=== PATIENT | male | born 1975 | race Caucasian/White ===

== ENCOUNTER 2021-01-10 17:36 | Inpatient (IN) | payer BC ==
[~2021-01-10] VITALS: Ht 175.3 cm; Wt 112.3 kg
--- NOTE | 2021-01-10 17:58 | PHYS DOC ---
General Adult EDM: Chief Complaint: SHORTNESS OF BREATH HPI: HPI: Patient is a 45 year old male presents emergency department complaining of increased shortness of breath with exertion that started yesterday afternoon. Patient states he was diagnosed Covid19+ on January 02, 2021, and has been self isolating at home since. Patient states that his also has the Covid virus and she purchased a pulse oximeter so they could monitor there oxygen saturations at home. Patient states his oxygen saturation was 83% today so he called the ambulance to bring him to the emergency department. Patient reports intermittent chest pains with intermittent periods of shortness of breath. Miguel maryam denies any chest pain or shortness of breath at this time. Patient reports she has a cough that is nonproductive. Patient reports he was seen at an [facility] urgent care center who started him on a metered-dose inhaler of albuterol, oral steroids, and Augmentin twice daily. Patient states he is a type II diabetic and takes Metformin 1000 mg twice daily, glimepiride 2 mg nightly. Patient states he had his tonsils removed as a child and has had no other surgeries. Review of Systems: Review of Systems: 14 body systems of review of systems have been reviewed. See HPI for pertinent positives and negative responses, otherwise all other systems are negative, nonpertinent or noncontributory. Heart Score: HEART Score for Chest Pain: HEART Score for Chest Pain Response (Comments) Value History Slighlty/Non-Suspicious 0 ECG Normal 0 Age >45 - < 65 1 Risk Factors No Risk Factors 0 Troponin < Normal Limit 0 Total 1 Risk Factors: Risk Factors: DM, Current or recent (<one month) smoker, HTN, HLP, family history of CAD, obesity. Risk Scores: Score 0 - 3: 2.5% MACE over next 6 weeks - Discharge Home Score 4 - 6: 20.3% MACE over next 6 weeks - Admit for Clinical Observation Score 7 - 10: 72.7% MACE over next 6 weeks - Early Invasive Strategies Current Medications: Metformin 1000 mg twice daily, glimepiride 2 mg nightly, atorvastatin 40 mg daily, rosuvastatin 10 mg daily, amlodipine 5 mg daily, lisinopril 40 mg daily, hydrochlorothiazide 25 mg daily. Allergies: Allergies: Allergies Coded Allergies Type Severity Reaction Last Updated Verified codeine Allergy Mild nausea 01/10/21 Yes Physical Exam: PE: Constitutional: Well developed, well nourished, no acute distress, non-toxic appearance. Patient is in mild respiratory distress during physical exam. HENT: Normocephalic, atraumatic, bilateral external ears normal, oropharynx moist, no oral exudates, nose normal. Eyes: PERRLA, EOMI, conjunctiva normal, no discharge. Neck: Normal range of motion, no tenderness, supple, no stridor. Cardiovascular:Heart rate regular rhythm, no murmur, heart sounds S1-S2 auscultation. Lungs & Thorax: Bilateral breath sounds diminished bilateral bases otherwise clear to auscultation all lung quispe, no other adventitious lung sounds appreciated. Abdomen: Bowel sounds normal, soft, no tenderness, no masses, no pulsatile masses. Skin: Warm, dry, no erythema, no rash. Back: No tenderness, no CVA tenderness. Extremities: No tenderness, no cyanosis, no clubbing, ROM intact, no edema. Neurologic: Alert and oriented X 3, normal motor function, normal sensory function, no focal deficits noted. Psychologic: Affect normal, judgement normal, mood normal. Current Patient Data: Labs: Laboratory Tests Test 01/10/21 18:00 01/10/21 19:34 White Blood Count 9.3 x10^3/uL Red Blood Count 4.49 x10^6/uL Hemoglobin 13.4 g/dL Hematocrit 38.7 % Mean Corpuscular Volume 86 fL Mean Corpuscular Hemoglobin 30 pg Mean Corpuscular Hemoglobin Concent 35 g/dL Red Cell Distribution Width 13.2 % Platelet Count 299 x10^3/uL Neutrophils (%) (Auto) 86 % Lymphocytes (%) (Auto) 7 % Monocytes (%) (Auto) 7 % Eosinophils (%) (Auto) 0 % Basophils (%) (Auto) 0 % Neutrophils # (Auto) 8.0 x10^3/uL Lymphocytes # (Auto) 0.7 x10^3/uL Monocytes # (Auto) 0.6 x10^3/uL Eosinophils # (Auto) 0.0 x10^3/uL Basophils # (Auto) 0.0 x10^3/uL Segmented Neutrophils % 81 % Lymphocytes % 9 % Atypical Lymphocytes % (Manual) 2 % Monocytes % 8 % Platelet Estimate Adequate Large Platelets Occ D-Dimer (Donna) 0.28 ug/mlFEU Sodium Level 135 mmol/L Potassium Level 4.2 mmol/L Chloride Level 97 mmol/L Carbon Dioxide Level 25 mmol/L Anion Gap 13 Blood Urea Nitrogen 22 mg/dL Creatinine 1.3 mg/dL Estimated GFR (Cockcroft-Gault) 59.7 BUN/Creatinine Ratio 17 Glucose Level 401 mg/dL Calcium Level 8.7 mg/dL Magnesium Level 2.6 mg/dL Total Bilirubin 0.7 mg/dL Aspartate Amino Transf (AST/SGOT) 22 U/L Alanine Aminotransferase (ALT/SGPT) 37 U/L Alkaline Phosphatase 42 U/L Troponin I Quantitative < 0.017 ng/mL Total Protein 7.0 g/dL Albumin 2.9 g/dL Albumin/Globulin Ratio 0.7 Acetone Level Neg O2 Saturation 89 % Arterial Blood pH 7.43 Arterial Blood pCO2 at Patient Temp 42 mmHg Arterial Blood pO2 at Patient Temp 56 mmHg Arterial Blood HCO3 27 mmol/L Arterial Blood Base Excess 3 mmol/L Oxyhemoglobin 88.6 % Methemoglobin 0.4 % Carbon Monoxide, Quantitative 0.2 % FiO2 28 EKG: EKG: EKG performed at 1749 by ED nursing staff, shows a normal sinus rhythm without ectopy heart rate 88 bpm ME interval 0.136, QTc interval 0.432, no acute STEMI, no ACS, no acute ischemia appreciated, EKG interpreted by ED attending physician Dr. Lorenzana Radiology/Procedures: Radiology/Procedures: PATIENT: MEHDI CONLEY ACCOUNT: [id number] : 1975 LOCATION: ER AGE: 45 SEX: M EXAM STATUS: REG ER ORD. PHYSICIAN: FLAVIA DE LA ROSA APRN REASON: SHORT OF BREATH, COVID-19+ room 19 PROCEDURE: CHEST AP ONLY XR CHEST 1V History: Reason: SHORT OF BREATH, COVID-19+ room 19 / Spl. Instructions: / History: Comparison: None. Findings: Ill-defined bilateral pulmonary opacities. No pleural effusion. No pneumothorax. Normal heart size. Impression: 1. Ill-defined bilateral pulmonary opacities, can be seen with viral pneumonia. Electronically signed by: Ruiz Diana DO (01/10/2021 6:31 PM) [facility] DICTATED and SIGNED BY: RUIZ DIANA DO DATE: 01/10/21 [id number] 0 Course & Med Decision Making: Course & Med Decision Making Pertinent Labs and Imaging studies reviewed. (See chart for details) 45-year-old male, vital signs reviewed, presents with emergency department complaining of increased shortness of breath after being diagnosed with COVID-19 virus. Physical examination was concerning for hypoxia, ED work-up initiated for cardiopulmonary process. EKG normal, cardiac enzymes normal, chest x-ray consistent with bilateral viral pneumonia, patient's D-dimer was negative. Patient's blood gas concerning for hypoxia, patient placed on 4 L nasal cannula to maintain sat above 92%. Discussed findings with patient and recommended admission to the hospital, patient was amenable to this plan. Discussed patient case with [facility] physician Dr. Cheney who agreed to assume care and admit patient to the sixth floor for the diagnosis of hypoxia, COVID-19 positive, uncontrolled diabetes mellitus. Dr. Cheney has assumed patient care at this time. Patient is Covid19+, or N95 mask, goggles, face shield, PPE gown and gloves during all contact with patient. Patient has not had a COVID-19 vaccination, has had a flu shot in 2020. Dragon Disclaimer: Toppr Disclaimer: This electronic medical record was generated, in whole or in part, using a voice recognition dictation system. Departure Departure Impression: Primary Impression: Hypoxia Additional Impressions: COVID-19 virus infection Uncontrolled diabetes mellitus Qualified Codes: E11.65 - Type 2 diabetes mellitus with hyperglycemia Disposition: ADMITTED INPT THIS HOSP Admitting Physician: [facility] (Admit to Dr. Cheney, sixth floor COVID-19 unit) Condition: GUARDED Referrals: UNKNOWN PCP NAME (PCP) FLAVIA DE LA ROSA APRN Jan 10, 2021 17:58
[2021-01-10 18:21] LABS: BASO % 0 % (0-3); EOS % 0 % (0-3); HEMATOCRIT 38.7 % (39.0-53.0); HEMOGLOBIN 13.4 g/dL (13.0-17.5); LYMPH # 0.7 x10^3/uL (1.0-4.8); LYMPH % 7 % (24-48); MEAN CORPUSCULAR HEMOGLOBIN 30 pg (25-35); MEAN CORPUSCULAR HGB CONC 35 g/dL (31-37); MEAN CORPUSCULAR VOLUME 86 fL (79-100); MONO # 0.6 x10^3/uL (0.0-1.1); MONO % 7 % (0-9); NEUT % 86 % (31-73); PLATELET COUNT 299 x10^3/uL (140-400); RED BLOOD COUNT 4.49 x10^6/uL (4.30-5.70); RED CELL DISTRIBUTION WIDTH 13.2 % (11.5-14.5); WHITE BLOOD COUNT 9.3 x10^3/uL (4.0-11.0)
[2021-01-10 18:33] LABS: CALCIUM 8.7 mg/dL (8.5-10.1); CREATININE 1.3 mg/dL (0.7-1.3); GFR 59.7; POTASSIUM 4.2 mmol/L (3.5-5.1)
--- NOTE | 2021-01-10 18:33 | RAD ---
XR CHEST 1V History: Reason: SHORT OF BREATH, COVID-19+ room 19 / Spl. Instructions: / History: Comparison: None. Findings: Ill-defined bilateral pulmonary opacities. No pleural effusion. No pneumothorax. Normal heart size. Impression: 1. Ill-defined bilateral pulmonary opacities, can be seen with viral pneumonia. Electronically signed by: Ruiz Diana DO (01/10/2021 6:31 PM) [facility]
[2021-01-10 18:39] LABS: ALBUMIN 2.9 g/dL (3.4-5.0); ALBUMIN/GLOBULIN RATIO 0.7 (1.0-1.7); MAGNESIUM 2.6 mg/dL (1.8-2.4); TOTAL BILIRUBIN 0.7 mg/dL (0.2-1.0)
[2021-01-10 19:34] LABS: BASE EXCESS COOX 3 mmol/L (-3-3); HCO3 COOX 27 mmol/L (21-28); METHEMOGLOBIN 0.4 % (0.0-1.9); OXYHEMOGLOBIN 88.6 %; PCO2 COOX 42 mmHg (35-46); PO2 COOX 56 mmHg (75-108); SAT O2 COOX 89 % (92-99)
[2021-01-10 19:58] LABS: % ATYL 2 % (0-0); % LYMPHS 9 % (24-48); % MONOS 8 % (0-10); % SEGS 81 % (35-66)
[2021-01-10 19:59] LABS: PLT ESTIMATE ADEQUATE (ADEQUATE)
[2021-01-10] MEDS ORDERED: guaiFENesin/CODEINE 100mg/10mg 5 ML LIQUID PO PRN (21:00)
[2021-01-10] MEDS ORDERED: DEXTROSE 50% 25 GM / 50ML DISP.SYRIN. IV PRN (21:00)
[2021-01-10] MEDS ORDERED: AZITHROMYCIN 500 MG in IV NORMAL SALINE 250ML 250 ML IV ONE (21:00)
[2021-01-10] MEDS ORDERED: ERGOCALCIFEROL (VITAMIN D2) 50,000 UNIT CAPSULE. PO ONE (21:00)
--- NOTE | 2021-01-10 21:08 | PDOC1 ---
History and Physical Date of Admission Date of Admission DATE: 01/10/21 TIME: 21:02 History of Present Illness History of Present Illness Mr. Barber is a 45 year old male, admit with marked worse shortness of breath with exertion over 24 hours. Noted to be Covid19+ on January 02, 2021, he worked 2/, tested pos after exposure from his . They had used a home pulse oximeter and dropped to 83% today. He has intermittent chest pains with cough and dyspnea. Patient states he is a type II diabetic and takes Metformin 1000 mg twice daily, glimepiride 2 mg nightly. 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, Social History Smoke: No ALCOHOL: none Drugs: None Current Problem List Problem List Problems Medical Problems: (1) COVID-19 virus infection Status: Acute (2) Hypoxia Status: Acute (3) Uncontrolled diabetes mellitus Status: Acute Current Medications Current Medications Current Medications Ergocalciferol (Vitamin D2) 50,000 unit 1X ONCE PO ; Start 01/10/21 at 21:00; Stop 01/10/21 at 21:01 Zinc Sulfate (Orazinc) 220 mg DAILY PO ; Start 01/11/21 at 09:00 Vitamin D (Vitamin D3) 5,000 unit DAILY PO ; Start 01/11/21 at 09:00 Vitamin B Complex (Folbic Tablet) 1 tab DAILY PO ; Start 01/11/21 at 09:00 Enoxaparin Sodium (Lovenox Per Pharmacy Prophylaxis Dosing) 1 each PRN DAILY PRN MC SEE COMMENTS; Start 01/10/21 at 21:00 Guaifenesin/ Codeine Phosphate (Robitussin Ac) 5 ml PRN Q6HRS PRN PO COUGH; Start 01/10/21 at 21:00 Ascorbic Acid (Vitamin C) 500 mg DAILY PO ; Start 01/10/21 at 21:00 Benzonatate (Tessalon Perle) 100 mg BID PO ; Start 01/10/21 at 21:00; Status UNV Prednisone (Prednisone) 50 mg 1X ONCE PO ; Start 01/10/21 at 21:00; Stop 01/10/21 at 21:01; Status UNV Prednisone (Prednisone) 40 mg DAILY PO ; Start 01/11/21 at 09:00; Status UNV Insulin Glargine (Lantus Syringe) 30 unit QHS SQ ; Start 01/10/21 at 21:00; Status UNV Insulin Human Lispro (HumaLOG) 0-9 UNITS QIDACHS SQ ; Start 01/10/21 at 21:00; Status UNV Dextrose (Dextrose 50%-Water Syringe) 12.5 gm PRN Q15MIN PRN IV SEE COMMENTS; Start 01/10/21 at 21:00; Status UNV Allergies Allergies: Coded Allergies: codeine (Verified Allergy, Mild, nausea, 01/10/21) ROS General: YES: Chills, Fatigue, Malaise, Appetite PSYCHOLOGICAL ROS: YES: Irritablity, Sleep disturbances; No: Anxiety, Behavioral Disorder, Concentration difficultie, Decreased libido, Depression, Disorientation, Hallucinations, Hostility, Memory difficulties, Mood Swings, Obsessive thoughts, Physical abuse, Sexual abuse, Suicidal ideation, Other Eyes: No Blurry vision, No Decreased vision, No Double vision, No Dry eyes, No Excessive tearing, No Eye Pain, No Itchy Eyes, No Loss of vision, No Photophobia, No Scotomata, No Uses contacts, No Uses glasses, No Other HEENT: YES: Heacaches; No: Visual Changes, Hearing change, Nasal congestion, Nasal discharge, Oral lesions, Sinus pain, Sore Throat, Epistaxis, Sneezing, Snoring, Tinnitus, Vertigo, Vocal changes, Other Respiratory: YES: Cough, Shortness of breath, SOB with excertion, Tachypnea; No: Hemoptysis, Orthopnea, Pleuritic Pain, Sputum Changes, Stridor, Wheezing, Other Cardiovascular: No Chest Pain, No Palpitations, No Orthopnea, No Paroxysmal Noc. Dyspnea, No Edema, No Lt Headedness, No Other Gastrointestinal: Yes Nausea, Yes Other; No Vomiting, No Abdominal Pain, No Diarrhea, No Constipation, No Melena, No Hematochezia Genitourinary: No Dysuria, No Frequency, No Incontinence, No Hematuria, No Retention, No Discharge, No Urgency, No Pain, No Flank Pain, No Other, No , No , No , No , No , No , No Musculoskeletal: Yes Joint Stiffness; No Gait Disturbance, No Joint Pain, No Joint Swelling, No Muscle Pain, No Mu scular Weakness, No Pain In:, No Swelling In:, No Other Neurological: No Behavorial Changes, No Bowel/Bladder ControlChng, No Confusion, No Dizziness, No Gait Disturbance, No Headaches, No Impaired Coord/balance, No Memory Loss, No Numbness/Tingling, No Seizures, No Speech Problems, No Tremors, No Visual Changes, No Weakness, No Other Skin: No Dry Skin, No Eczema, No Hair Changes, No Lumps, No Mole Changes, No Mottling, No Nail Changes, No Pruritus, No Rash, No Skin Lesion Changes, No Other, No Acne Physical Exam General: Alert, Oriented X3, Cooperative, mild distress, moderate distress HEENT: Atraumatic, PERRLA Lungs: Clear to auscultation Heart: S1S2, RRR, no thrills, no murmurs Extremities: No cyanosis, Normal pulses Skin: No rashes Neuro: Normal speech, Normal tone, Sensation intact Psych/Mental Status: Mood NL Vitals Vitals Vital Signs Date Time Temp Pulse Resp B/P (MAP) Pulse Ox O2 Delivery O2 Flow Rate FiO2 01/10/21 20:44 78 20 136/85 (102) 94 Nasal Cannula 01/10/21 20:14 4.0 01/10/21 17:50 98.5 98.5 Labs Labs Laboratory Tests Test 01/10/21 18:00 01/10/21 19:34 White Blood Count 9.3 x10^3/uL (4.0-11.0) Red Blood Count 4.49 x10^6/uL (4.30-5.70) Hemoglobin 13.4 g/dL (13.0-17.5) Hematocrit 38.7 % (39.0-53.0) Mean Corpuscular Volume 86 fL (79-100) Mean Corpuscular Hemoglobin 30 pg (25-35) Mean Corpuscular Hemoglobin Concent 35 g/dL (31-37) Red Cell Distribution Width 13.2 % (11.5-14.5) Platelet Count 299 x10^3/uL (140-400) Neutrophils (%) (Auto) 86 % (31-73) Lymphocytes (%) (Auto) 7 % (24-48) Monocytes (%) (Auto) 7 % (0-9) Eosinophils (%) (Auto) 0 % (0-3) Basophils (%) (Auto) 0 % (0-3) Neutrophils # (Auto) 8.0 x10^3/uL (1.8-7.7) Lymphocytes # (Auto) 0.7 x10^3/uL (1.0-4.8) Monocytes # (Auto) 0.6 x10^3/uL (0.0-1.1) Eosinophils # (Auto) 0.0 x10^3/uL (0.0-0.7) Basophils # (Auto) 0.0 x10^3/uL (0.0-0.2) Segmented Neutrophils % 81 % (35-66) Lymphocytes % 9 % (24-48) Atypical Lymphocytes % (Manual) 2 % (0-0) Monocytes % 8 % (0-10) Platelet Estimate Adequate (ADEQUATE) Large Platelets Occ D-Dimer (Donna) 0.28 ug/mlFEU (0.00-0.50) Sodium Level 135 mmol/L (136-145) Potassium Level 4.2 mmol/L (3.5-5.1) Chloride Level 97 mmol/L (98-107) Carbon Dioxide Level 25 mmol/L (21-32) Anion Gap 13 (6-14) Blood Urea Nitrogen 22 mg/dL (8-26) Creatinine 1.3 mg/dL (0.7-1.3) Estimated GFR (Cockcroft-Gault) 59.7 BUN/Creatinine Ratio 17 (6-20) Glucose Level 401 mg/dL (70-99) Calcium Level 8.7 mg/dL (8.5-10.1) Magnesium Level 2.6 mg/dL (1.8-2.4) Total Bilirubin 0.7 mg/dL (0.2-1.0) Aspartate Amino Transf (AST/SGOT) 22 U/L (15-37) Alanine Aminotransferase (ALT/SGPT) 37 U/L (16-63) Alkaline Phosphatase 42 U/L (46-116) Troponin I Quantitative < 0.017 ng/mL (0.000-0.055) Total Protein 7.0 g/dL (6.4-8.2) Albumin 2.9 g/dL (3.4-5.0) Albumin/Globulin Ratio 0.7 (1.0-1.7) Acetone Level Neg (NEG) O2 Saturation 89 % (92-99) Arterial Blood pH 7.43 (7.35-7.45) Arterial Blood pCO2 at Patient Temp 42 mmHg (35-46) Arterial Blood pO2 at Patient Temp 56 mmHg (75-108) Arterial Blood HCO3 27 mmol/L (21-28) Arterial Blood Base Excess 3 mmol/L (-3-3) Oxyhemoglobin 88.6 % Methemoglobin 0.4 % (0.0-1.9) Carbon Monoxide, Quantitative 0.2 % (0.0-1.9) FiO2 28 Laboratory Tests Test 01/10/21 18:00 01/10/21 19:34 White Blood Count 9.3 x10^3/uL (4.0-11.0) Red Blood Count 4.49 x10^6/uL (4.30-5.70) Hemoglobin 13.4 g/dL (13.0-17.5) Hematocrit 38.7 % (39.0-53.0) Mean Corpuscular Volume 86 fL (79-100) Mean Corpuscular Hemoglobin 30 pg (25-35) Mean Corpuscular Hemoglobin Concent 35 g/dL (31-37) Red Cell Distribution Width 13.2 % (11.5-14.5) Platelet Count 299 x10^3/uL (140-400) Neutrophils (%) (Auto) 86 % (31-73) Lymphocytes (%) (Auto) 7 % (24-48) Monocytes (%) (Auto) 7 % (0-9) Eosinophils (%) (Auto) 0 % (0-3) Basophils (%) (Auto) 0 % (0-3) Neutrophils # (Auto) 8.0 x10^3/uL (1.8-7.7) Lymphocytes # (Auto) 0.7 x10^3/uL (1.0-4.8) Monocytes # (Auto) 0.6 x10^3/uL (0.0-1.1) Eosinophils # (Auto) 0.0 x10^3/uL (0.0-0.7) Basophils # (Auto) 0.0 x10^3/uL (0.0-0.2) Segmented Neutrophils % 81 % (35-66) Lymphocytes % 9 % (24-48) Atypical Lymphocytes % (Manual) 2 % (0-0) Monocytes % 8 % (0-10) Platelet Estimate Adequate (ADEQUATE) Large Platelets Occ D-Dimer (Donna) 0.28 ug/mlFEU (0.00-0.50) Sodium Level 135 mmol/L (136-145) Potassium Level 4.2 mmol/L (3.5-5.1) Chloride Level 97 mmol/L (98-107) Carbon Dioxide Level 25 mmol/L (21-32) Anion Gap 13 (6-14) Blood Urea Nitrogen 22 mg/dL (8-26) Creatinine 1.3 mg/dL (0.7-1.3) Estimated GFR (Cockcroft-Gault) 59.7 BUN/Creatinine Ratio 17 (6-20) Glucose Level 401 mg/dL (70-99) Calcium Level 8.7 mg/dL (8.5-10.1) Magnesium Level 2.6 mg/dL (1.8-2.4) Total Bilirubin 0.7 mg/dL (0.2-1.0) Aspartate Amino Transf (AST/SGOT) 22 U/L (15-37) Alanine Aminotransferase (ALT/SGPT) 37 U/L (16-63) Alkaline Phosphatase 42 U/L (46-116) Troponin I Quantitative < 0.017 ng/mL (0.000-0.055) Total Protein 7.0 g/dL (6.4-8.2) Albumin 2.9 g/dL (3.4-5.0) Albumin/Globulin Ratio 0.7 (1.0-1.7) Acetone Level Neg (NEG) O2 Saturation 89 % (92-99) Arterial Blood pH 7.43 (7.35-7.45) Arterial Blood pCO2 at Patient Temp 42 mmHg (35-46) Arterial Blood pO2 at Patient Temp 56 mmHg (75-108) Arterial Blood HCO3 27 mmol/L (21-28) Arterial Blood Base Excess 3 mmol/L (-3-3) Oxyhemoglobin 88.6 % Methemoglobin 0.4 % (0.0-1.9) Carbon Monoxide, Quantitative 0.2 % (0.0-1.9) FiO2 28 VTE Prophylaxis Ordered VTE Prophylaxis Devices: No VTE Pharmacological Prophylaxi: Yes Assessment/Plan Assessment/Plan acute hypoxic respiratory failure COVID -19 positive from 01/02, with cough and dysgeusia and weakness and malaise, and shortness of breath obese, BMI 36 Dm2, on metformin and glyburide, hyperglycemia, will give LAntus and SSI hydrate, full covid protocol azithro, steroids, lovenox BID, vitamins and Remdesivir, admit to COVID unit Justifications for Admission Other Justification MIGUEL RODRIGUEZ MD Jan 10, 2021 21:08
[2021-01-10] MEDS ORDERED: AZITHRMYCN 500MG IVPB FOR OMNI 250 ML IV ONE (21:30)
[2021-01-10] MEDS ORDERED: INSULIN GLARGINE SYRINGE. SQ SCH (21:30)
[2021-01-10] MEDS ORDERED: predniSONE 10 MG TABLET PO ONE (21:30)
[2021-01-10] MEDS ORDERED: REMDESIVIR LOAD in IV NORMAL SALINE 250ML TV IV ONE (22:00)
[2021-01-10] MEDS: IV NORMAL SALINE 1000ML BAG 1,000 ML IV SCH (22:58)
[2021-01-10] MEDS: metFORMIN 500 MG TABLET PO SCH (22:58)
[2021-01-10] MEDS: BENZONATATE 100 MG CAPSULE. PO SCH (22:59)
[2021-01-10] MEDS: ASCORBIC ACID 500 MG TABLET PO SCH (22:59)
[2021-01-10] MEDS: ENOXAPARIN 40 MG/0.4 ML SYRINGE. SQ SCH (23:00)
[2021-01-10] MEDS: INSULIN LISPRO 300 UNITS/3 ML VIAL. SQ SCH (23:28)
[2021-01-10 23:34] VITALS: BP 129/82
[2021-01-11] MEDS ORDERED: AMLO-186 PO (00:12)
[2021-01-11] MEDS ORDERED: LISI-130 PO (00:12)
[2021-01-11] MEDS ORDERED: GLIM2TAB7 PO (00:12)
[2021-01-11] MEDS ORDERED: GLIM4TAB8 PO (00:12)
[2021-01-11] MEDS ORDERED: PRED1TAB3 PO (00:12)
[2021-01-11] MEDS ORDERED: GABA300C18 PO (00:12)
[2021-01-11] MEDS ORDERED: HYDR-2145 PO (00:12)
[2021-01-11] MEDS ORDERED: METF10007 PO (00:12)
[2021-01-11] MEDS ORDERED: CRESTOR5 MG PO (00:12)
[2021-01-11] MEDS ORDERED: ATOR40TA59 PO (00:12)
[2021-01-11 03:49] VITALS: BP 126/78
--- NOTE | 2021-01-11 04:57 | EKG ---
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
[2021-01-11 05:15] LABS: BASO % 0 % (0-3); EOS % 0 % (0-3); HEMATOCRIT 38.5 % (39.0-53.0); HEMOGLOBIN 13.5 g/dL (13.0-17.5); LYMPH # 0.7 x10^3/uL (1.0-4.8); LYMPH % 7 % (24-48); MEAN CORPUSCULAR HEMOGLOBIN 30 pg (25-35); MEAN CORPUSCULAR HGB CONC 35 g/dL (31-37); MEAN CORPUSCULAR VOLUME 85 fL (79-100); MONO # 0.7 x10^3/uL (0.0-1.1); MONO % 7 % (0-9); NEUT # 8.9 x10^3/uL (1.8-7.7); NEUT % 86 % (31-73); PLATELET COUNT 299 x10^3/uL (140-400); RED BLOOD COUNT 4.51 x10^6/uL (4.30-5.70); RED CELL DISTRIBUTION WIDTH 12.9 % (11.5-14.5); WHITE BLOOD COUNT 10.3 x10^3/uL (4.0-11.0)
[2021-01-11 05:48] LABS: ALBUMIN 2.7 g/dL (3.4-5.0); ALBUMIN/GLOBULIN RATIO 0.7 (1.0-1.7); CALCIUM 8.5 mg/dL (8.5-10.1); CREATININE 0.9 mg/dL (0.7-1.3); GFR 91.3; POTASSIUM 4.4 mmol/L (3.5-5.1); TOTAL BILIRUBIN 0.5 mg/dL (0.2-1.0); TOTAL PROTEIN 6.8 g/dL (6.4-8.2)
[2021-01-11] MEDS: INSULIN LISPRO 300 UNITS/3 ML VIAL. SQ SCH ×4 (07:30→22:13)
[2021-01-11] MEDS: metFORMIN 500 MG TABLET PO SCH ×2 (08:00→16:58)
[2021-01-11] MEDS: BENZONATATE 100 MG CAPSULE. PO SCH ×2 (09:00→21:24)
[2021-01-11] MEDS: ZINC SULFATE 220 MG CAPSULE. PO SCH (09:00)
[2021-01-11] MEDS: ASCORBIC ACID 500 MG TABLET PO SCH (09:00)
[2021-01-11] MEDS: ENOXAPARIN 40 MG/0.4 ML SYRINGE. SQ SCH ×2 (09:00→21:25)
[2021-01-11] MEDS: CHOLECALCIFEROL (VITAMIN D3) 5,000 UNIT CAPSULE PO SCH (09:00)
[2021-01-11] MEDS ORDERED: predniSONE 20 MG TABLET PO SCH (09:00)
[2021-01-11] MEDS: VITAMIN B12,B9,B6 COMPLEX 1 TABLET. PO SCH (09:00)
[2021-01-11] MEDS: AZITHROMYCIN 250 MG TABLET. PO SCH (09:00)
--- NOTE | 2021-01-11 14:35 | PDOC ---
[employer] PROGRESS NOTE Date of Service DOS: DATE: 01/11/21 TIME: 14:34 Chief Complaint Chief Complaint A/P: Acute hypoxic respiratory failure COVID -19 positive from 01/02, with cough and dysgeusia and weakness and malaise, and shortness of breath Obese, BMI 36 Dm2, on metformin and glyburide, hyperglycemia, will give Lantus and SSI hydrate, full covid protocol azithro, steroids, lovenox BID, vitamins and Remdesivir, History of Present Illness History of Present Illness Mr. Barber is a 45 year old male, admit with marked worse shortness of breath with exertion over 24 hours. Noted to be Covid19+ on January 02, 2021, he worked 01/01, tested pos after exposure from his . They had used a home pulse oximeter and dropped to 83% on 01/10/21. He has intermittent chest pains with cough and dyspnea. Patient states he is a type II diabetic and takes Metformin 1000 mg twice daily, glimepiride 2 mg nightly. 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 Admitted for further care. Overnight required increased to 8 L minute oxygen. He still has a little bit of an appetite but is loss of sense of taste. Glucose in the 200s. Has some diarrhea now Vitals/I&O Vitals/I&O: Vital Signs Date Time Temp Pulse Resp B/P (MAP) Pulse Ox O2 Delivery O2 Flow Rate FiO2 01/11/21 03:49 98.2 67 24 126/78 (94) 93 Venturi Mask 40.0 98.2 I & O 01/10/21 01/10/21 01/11/21 15:00 23:00 07:00 Intake Total 460 ml Output Total 950 ml 0 ml Balance -950 ml 460 ml Physical Exam General: Alert, Oriented X3, Cooperative, mild distress, moderate distress Extremities: No cyanosis, Normal pulses Skin: No rashes Labs Labs: Laboratory Tests Test 01/10/21 18:00 01/10/21 19:34 01/10/21 23:20 01/11/21 03:36 White Blood Count 9.3 x10^3/uL (4.0-11.0) Red Blood Count 4.49 x10^6/uL (4.30-5.70) Hemoglobin 13.4 g/dL (13.0-17.5) Hematocrit 38.7 % (39.0-53.0) Mean Corpuscular Volume 86 fL (79-100) Mean Corpuscular Hemoglobin 30 pg (25-35) Mean Corpuscular Hemoglobin Concent 35 g/dL (31-37) Red Cell Distribution Width 13.2 % (11.5-14.5) Platelet Count 299 x10^3/uL (140-400) Neutrophils (%) (Auto) 86 % (31-73) Lymphocytes (%) (Auto) 7 % (24-48) Monocytes (%) (Auto) 7 % (0-9) Eosinophils (%) (Auto) 0 % (0-3) Basophils (%) (Auto) 0 % (0-3) Neutrophils # (Auto) 8.0 x10^3/uL (1.8-7.7) Lymphocytes # (Auto) 0.7 x10^3/uL (1.0-4.8) Monocytes # (Auto) 0.6 x10^3/uL (0.0-1.1) Eosinophils # (Auto) 0.0 x10^3/uL (0.0-0.7) Basophils # (Auto) 0.0 x10^3/uL (0.0-0.2) Segmented Neutrophils % 81 % (35-66) Lymphocytes % 9 % (24-48) Atypical Lymphocytes % (Manual) 2 % (0-0) Monocytes % 8 % (0-10) Platelet Estimate Adequate (ADEQUATE) Large Platelets Occ D-Dimer (Donna) 0.28 ug/mlFEU (0.00-0.50) Sodium Level 135 mmol/L (136-145) Potassium Level 4.2 mmol/L (3.5-5.1) Chloride Level 97 mmol/L (98-107) Carbon Dioxide Level 25 mmol/L (21-32) Anion Gap 13 (6-14) Blood Urea Nitrogen 22 mg/dL (8-26) Creatinine 1.3 mg/dL (0.7-1.3) Estimated GFR (Cockcroft-Gault) 59.7 BUN/Creatinine Ratio 17 (6-20) Glucose Level 401 mg/dL (70-99) Calcium Level 8.7 mg/dL (8.5-10.1) Magnesium Level 2.6 mg/dL (1.8-2.4) Total Bilirubin 0.7 mg/dL (0.2-1.0) Aspartate Amino Transf (AST/SGOT) 22 U/L (15-37) Alanine Aminotransferase (ALT/SGPT) 37 U/L (16-63) Alkaline Phosphatase 42 U/L (46-116) Troponin I Quantitative < 0.017 ng/mL (0.000-0.055) Total Protein 7.0 g/dL (6.4-8.2) Albumin 2.9 g/dL (3.4-5.0) Albumin/Globulin Ratio 0.7 (1.0-1.7) Acetone Level Neg (NEG) O2 Saturation 89 % (92-99) Arterial Blood pH 7.43 (7.35-7.45) Arterial Blood pCO2 at Patient Temp 42 mmHg (35-46) Arterial Blood pO2 at Patient Temp 56 mmHg (75-108) Arterial Blood HCO3 27 mmol/L (21-28) Arterial Blood Base Excess 3 mmol/L (-3-3) Oxyhemoglobin 88.6 % Methemoglobin 0.4 % (0.0-1.9) Carbon Monoxide, Quantitative 0.2 % (0.0-1.9) FiO2 28 Glucose (Fingerstick) 248 mg/dL (70-99) 242 mg/dL (70-99) Test 01/11/21 04:00 01/11/21 07:12 01/11/21 10:48 White Blood Count 10.3 x10^3/uL (4.0-11.0) Red Blood Count 4.51 x10^6/uL (4.30-5.70) Hemoglobin 13.5 g/dL (13.0-17.5) Hematocrit 38.5 % (39.0-53.0) Mean Corpuscular Volume 85 fL (79-100) Mean Corpuscular Hemoglobin 30 pg (25-35) Mean Corpuscular Hemoglobin Concent 35 g/dL (31-37) Red Cell Distribution Width 12.9 % (11.5-14.5) Platelet Count 299 x10^3/uL (140-400) Neutrophils (%) (Auto) 86 % (31-73) Lymphocytes (%) (Auto) 7 % (24-48) Monocytes (%) (Auto) 7 % (0-9) Eosinophils (%) (Auto) 0 % (0-3) Basophils (%) (Auto) 0 % (0-3) Neutrophils # (Auto) 8.9 x10^3/uL (1.8-7.7) Lymphocytes # (Auto) 0.7 x10^3/uL (1.0-4.8) Monocytes # (Auto) 0.7 x10^3/uL (0.0-1.1) Eosinophils # (Auto) 0.0 x10^3/uL (0.0-0.7) Basophils # (Auto) 0.0 x10^3/uL (0.0-0.2) Sodium Level 138 mmol/L (136-145) Potassium Level 4.4 mmol/L (3.5-5.1) Chloride Level 102 mmol/L (98-107) Carbon Dioxide Level 27 mmol/L (21-32) Anion Gap 9 (6-14) Blood Urea Nitrogen 21 mg/dL (8-26) Creatinine 0.9 mg/dL (0.7-1.3) Estimated GFR (Cockcroft-Gault) 91.3 BUN/Creatinine Ratio 23 (6-20) Glucose Level 230 mg/dL (70-99) Calcium Level 8.5 mg/dL (8.5-10.1) Total Bilirubin 0.5 mg/dL (0.2-1.0) Aspartate Amino Transf (AST/SGOT) 23 U/L (15-37) Alanine Aminotransferase (ALT/SGPT) 41 U/L (16-63) Alkaline Phosphatase 39 U/L (46-116) Total Protein 6.8 g/dL (6.4-8.2) Albumin 2.7 g/dL (3.4-5.0) Albumin/Globulin Ratio 0.7 (1.0-1.7) Glucose (Fingerstick) 227 mg/dL (70-99) 226 mg/dL (70-99) Assessment and Plan Assessmemt and Plan Problems Medical Problems: (1) COVID-19 virus infection Status: Acute (2) Hypoxia Status: Acute (3) Uncontrolled diabetes mellitus Status: Acute Comment Review of Relevant I have reviewed the following items leeann (where applicable) has been applied. Medications: Current Medications Medications (Trade) Dose Ordered Sig/Nathan Route PRN Reason Start Time Stop Time Status Last Admin Dose Admin Ergocalciferol (Vitamin D2) 50,000 unit 1X ONCE PO 01/10/21 21:00 01/10/21 21:01 DC 01/10/21 22:58 Ascorbic Acid (Vitamin C) 500 mg DAILY PO 01/10/21 21:00 01/10/21 22:59 Benzonatate (Tessalon Perle) 100 mg BID PO 01/10/21 21:00 01/10/21 22:59 Prednisone (Prednisone) 50 mg 1X ONCE PO 01/10/21 21:30 01/10/21 21:31 DC 01/10/21 23:01 Insulin Glargine (Lantus Syringe) 30 unit QHS SQ 01/10/21 21:30 01/10/21 23:27 Insulin Human Lispro (HumaLOG) 0-9 UNITS QIDACHS SQ 01/10/21 21:00 01/10/21 23:28 Sodium Chloride 1,000 ml @ 100 mls/hr Q10H IV 01/10/21 21:00 01/11/21 23:00 01/10/21 22:58 Enoxaparin Sodium (Lovenox 40mg Syringe) 40 mg BID SQ 01/10/21 22:00 01/10/21 23:00 Remdesivir 200 mg/ Sodium Chloride 210 ml @ 210 mls/hr 1X ONCE IV 01/10/21 22:00 01/10/21 22:59 DC 01/10/21 23:09 Metformin HCl (Glucophage) 1,000 mg BIDWMEALS PO 01/10/21 22:00 01/10/21 22:58 Azithromycin 250 ml @ 250 mls/hr 1X ONCE IV 01/10/21 21:30 01/10/21 22:29 DC 01/11/21 00:15 Justifications for Admission Other Justification JAMI CHRISTOPHER MD Jan 11, 2021 14:35
[2021-01-11 15:00] VITALS: BP 137/83
[2021-01-11] MEDS: DEXAMETHASONE SOD PHOS 4 MG/ML VIAL IVP SCH (16:59)
[2021-01-11] MEDS: IV NORMAL SALINE 1000ML BAG 1,000 ML IV SCH ×2 (16:59→17:00)
[2021-01-11 19:00] VITALS: BP 135/74
[2021-01-11] MEDS: REMDESIVIR 100mg in NORMAL SALINE 250ML X 4 DAYS IV SCH (21:24)
[2021-01-11] MEDS: INSULIN GLARGINE SYRINGE. SQ SCH (22:12)
[2021-01-11 23:59] VITALS: BP 127/82
[2021-01-12 03:00] VITALS: BP 136/81
[2021-01-12] MEDS: DEXAMETHASONE SOD PHOS 4 MG/ML VIAL IVP SCH (05:27)
[2021-01-12 07:00] VITALS: BP 121/69
[2021-01-12] MEDS: ZINC SULFATE 220 MG CAPSULE. PO SCH (08:45)
[2021-01-12] MEDS: ASCORBIC ACID 500 MG TABLET PO SCH (08:45)
[2021-01-12] MEDS: INSULIN LISPRO 300 UNITS/3 ML VIAL. SQ SCH ×4 (08:45→21:46)
[2021-01-12] MEDS: CHOLECALCIFEROL (VITAMIN D3) 5,000 UNIT CAPSULE PO SCH (08:45)
[2021-01-12] MEDS: VITAMIN B12,B9,B6 COMPLEX 1 TABLET. PO SCH (08:45)
[2021-01-12] MEDS: AZITHROMYCIN 250 MG TABLET. PO SCH (08:46)
[2021-01-12] MEDS: BENZONATATE 100 MG CAPSULE. PO SCH ×2 (08:46→21:44)
[2021-01-12] MEDS: metFORMIN 500 MG TABLET PO SCH ×2 (08:46→17:15)
[2021-01-12] MEDS: ENOXAPARIN 40 MG/0.4 ML SYRINGE. SQ SCH ×2 (08:46→21:43)
[2021-01-12 11:00] VITALS: BP 133/70
[2021-01-12] MEDS ORDERED: LOPERAMIDE 2 MG CAPSULE PO PRN (14:15)
--- NOTE | 2021-01-12 14:16 | PDOC ---
[employer] PROGRESS NOTE Date of Service DOS: DATE: 01/12/21 TIME: 14:15 Chief Complaint Chief Complaint A/P: Acute hypoxic respiratory failure COVID -19 positive from 01/02, with cough and dysgeusia and weakness and malaise, and shortness of breath Obese, BMI 36 Dm2, on metformin and glyburide, hyperglycemia, will give Lantus and SSI hydrate, full covid protocol azithro, steroids, lovenox BID, vitamins and Remdesivir, History of Present Illness History of Present Illness Mr. Barber is a 45 year old male, admit with marked worse shortness of breath with exertion over 24 hours. Noted to be Covid19+ on January 02, 2021, he worked 01/01, tested pos after exposure from his . They had used a home pulse oximeter and dropped to 83% on 01/10/21. He has intermittent chest pains with cough and dyspnea. Patient states he is a type II diabetic and takes Metformin 1000 mg twice daily, glimepiride 2 mg nightly. 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 Admitted for further care. 01/11: Overnight required increased to 8 L minute oxygen. He still has a little bit of an appetite but is loss of sense of taste. Glucose in the 200s. Has some diarrhea now Afebrile. Continues on 8 L nasal cannula O2. Appetite is improving ate more. Still with diarrhea. He is feeling a little bit stronger. Remdesivir day two Vitals/I&O Vitals/I&O: Vital Signs Date Time Temp Pulse Resp B/P (MAP) Pulse Ox O2 Delivery O2 Flow Rate FiO2 01/12/21 11:00 96.8 54 21 133/70 (91) 97 Nasal Cannula 10.0 96.8 I & O 01/11/21 01/11/21 01/12/21 15:00 23:00 07:00 Output Total 300 ml 300 ml Balance -300 ml -300 ml Physical Exam General: Alert, Oriented X3, Cooperative, mild distress, moderate distress Extremities: No cyanosis, Normal pulses Skin: No rashes Labs Labs: Laboratory Tests Test 01/11/21 16:17 01/11/21 21:58 01/12/21 10:34 Glucose (Fingerstick) 241 mg/dL (70-99) 295 mg/dL (70-99) 241 mg/dL (70-99) Assessment and Plan Assessmemt and Plan Problems Medical Problems: (1) COVID-19 virus infection Status: Acute (2) Hypoxia Status: Acute (3) Uncontrolled diabetes mellitus Status: Acute Comment Review of Relevant I have reviewed the following items leeann (where applicable) has been applied. Medications: Current Medications Medications (Trade) Dose Ordered Sig/Nathan Route PRN Reason Start Time Stop Time Status Last Admin Dose Admin Remdesivir 100 mg/ Sodium Chloride 230 ml @ 460 mls/hr Q24H IV 01/11/21 22:00 01/14/21 22:29 01/11/21 21:24 Dexamethasone Sodium Phosphate (Decadron) 8 mg DAILY05 IVP 01/11/21 14:45 01/12/21 05:27 Insulin Glargine (Lantus Syringe) 38 unit QHS SQ 01/11/21 21:00 01/11/21 22:12 Justifications for Admission Other Justification JAMI CHRISTOPHER MD Jan 12, 2021 14:16
[2021-01-12 15:00] VITALS: BP 119/69
[2021-01-12 19:00] VITALS: BP 141/80
[2021-01-12] MEDS: INSULIN GLARGINE SYRINGE. SQ SCH (21:43)
[2021-01-12] MEDS: LACTOBACILLUS RHAMNOSUS GG 1 CAPSULE. PO SCH (21:44)
[2021-01-12] MEDS: REMDESIVIR 100mg in NORMAL SALINE 250ML X 4 DAYS IV SCH (21:45)
[2021-01-12 23:25] VITALS: BP 140/75
[2021-01-13 02:43] VITALS: BP 140/70
[2021-01-13] MEDS: DEXAMETHASONE SOD PHOS 4 MG/ML VIAL IVP SCH (06:34)
[2021-01-13 07:00] VITALS: BP 150/82
[2021-01-13] MEDS: INSULIN LISPRO 300 UNITS/3 ML VIAL. SQ SCH ×3 (07:30→17:34)
[2021-01-13 08:10] LABS: BASO % 0 % (0-3); EOS % 0 % (0-3); HEMATOCRIT 37.6 % (39.0-53.0); HEMOGLOBIN 12.9 g/dL (13.0-17.5); LYMPH # 2.3 x10^3/uL (1.0-4.8); LYMPH % 27 % (24-48); MEAN CORPUSCULAR HEMOGLOBIN 30 pg (25-35); MEAN CORPUSCULAR HGB CONC 34 g/dL (31-37); MEAN CORPUSCULAR VOLUME 86 fL (79-100); MONO # 0.8 x10^3/uL (0.0-1.1); MONO % 10 % (0-9); NEUT # 5.3 x10^3/uL (1.8-7.7); NEUT % 63 % (31-73); PLATELET COUNT 350 x10^3/uL (140-400); RED BLOOD COUNT 4.36 x10^6/uL (4.30-5.70); WHITE BLOOD COUNT 8.5 x10^3/uL (4.0-11.0)
--- NOTE | 2021-01-13 08:13 | PDOC ---
[employer] PROGRESS NOTE Date of Service DOS: DATE: 01/13/21 TIME: 08:12 Chief Complaint Chief Complaint A/P: Acute hypoxic respiratory failure COVID -19 positive from 01/02, with cough and dysgeusia and weakness and malaise, and shortness of breath Obese, BMI 36 Dm2, on metformin and glyburide, hyperglycemia, will give Lantus and SSI hydrate, full covid protocol azithro, steroids, lovenox BID, vitamins and Remdesivir, History of Present Illness History of Present Illness Mr. Barber is a 45 year old male, admit with marked worse shortness of breath with exertion over 24 hours. Noted to be Covid19+ on January 02, 2021, he worked 01/01, tested pos after exposure from his . They had used a home pulse oximeter and dropped to 83% on 01/10/21. He has intermittent chest pains with cough and dyspnea. Patient states he is a type II diabetic and takes Metformin 1000 mg twice daily, glimepiride 2 mg nightly. 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 Admitted for further care. 01/11: Overnight required increased to 8 L minute oxygen. He still has a little bit of an appetite but is loss of sense of taste. Glucose in the 200s. Has some diarrhea now 01/12: Afebrile. Continues on 8 L nasal cannula O2. Appetite is improving ate more. Still with diarrhea. He is feeling a little bit stronger. Remdesivir day two Afebrile, down to 5 L nasal cannula O2. 800% of his meals. Diarrhea improved. Feeling stronger able to ambulate in the room. Remdesivir day 3 currently. Vitals/I&O Vitals/I&O: Vital Signs Date Time Temp Pulse Resp B/P (MAP) Pulse Ox O2 Delivery O2 Flow Rate FiO2 01/13/21 07:00 97.2 62 31 150/82 (104) 98 Nasal Cannula 5.0 97.2 I & O 01/12/21 01/12/21 01/13/21 15:00 23:00 07:00 Intake Total 800 ml 500 ml 0 ml Balance 800 ml 500 ml 0 ml Physical Exam General: Alert, Oriented X3, Cooperative, mild distress, moderate distress Extremities: No cyanosis, Normal pulses Skin: No rashes Labs Labs: Laboratory Tests Test 01/12/21 10:34 01/12/21 16:47 01/12/21 19:32 01/13/21 07:35 Glucose (Fingerstick) 241 mg/dL (70-99) 216 mg/dL (70-99) 227 mg/dL (70-99) 123 mg/dL (70-99) Assessment and Plan Assessmemt and Plan Problems Medical Problems: (1) COVID-19 virus infection Status: Acute (2) Hypoxia Status: Acute (3) Uncontrolled diabetes mellitus Status: Acute Comment Review of Relevant I have reviewed the following items leeann (where applicable) has been applied. Medications: Current Medications Medications (Trade) Dose Ordered Sig/Nathan Route PRN Reason Start Time Stop Time Status Last Admin Dose Admin Lactobacillus Rhamnosus (Culturelle) 1 cap BID PO 01/12/21 21:00 01/12/21 21:44 Justifications for Admission Other Justification JAMI CHRISTOPHER MD Jan 13, 2021 08:12
[2021-01-13] MEDS: BENZONATATE 100 MG CAPSULE. PO SCH ×2 (08:16→21:22)
[2021-01-13] MEDS: VITAMIN B12,B9,B6 COMPLEX 1 TABLET. PO SCH (08:16)
[2021-01-13] MEDS: metFORMIN 500 MG TABLET PO SCH ×2 (08:16→17:33)
[2021-01-13] MEDS: LACTOBACILLUS RHAMNOSUS GG 1 CAPSULE. PO SCH ×2 (08:16→21:22)
[2021-01-13] MEDS: AZITHROMYCIN 250 MG TABLET. PO SCH (08:16)
[2021-01-13] MEDS: ASCORBIC ACID 500 MG TABLET PO SCH (08:16)
[2021-01-13] MEDS: ZINC SULFATE 220 MG CAPSULE. PO SCH (08:16)
[2021-01-13] MEDS: CHOLECALCIFEROL (VITAMIN D3) 5,000 UNIT CAPSULE PO SCH (08:18)
[2021-01-13 08:25] LABS: ALBUMIN 2.4 g/dL (3.4-5.0); ALBUMIN/GLOBULIN RATIO 0.7 (1.0-1.7); CALCIUM 8.6 mg/dL (8.5-10.1); CREATININE 0.9 mg/dL (0.7-1.3); GFR 91.3; POTASSIUM 3.5 mmol/L (3.5-5.1); TOTAL BILIRUBIN 0.4 mg/dL (0.2-1.0); TOTAL PROTEIN 5.9 g/dL (6.4-8.2)
[2021-01-13] MEDS: ENOXAPARIN 40 MG/0.4 ML SYRINGE. SQ SCH ×2 (09:53→21:23)
[2021-01-13 11:00] VITALS: BP 132/81
[2021-01-13 15:00] VITALS: BP 134/79
[2021-01-13 19:00] VITALS: BP 145/82
[2021-01-13] MEDS: REMDESIVIR 100mg in NORMAL SALINE 250ML X 4 DAYS IV SCH (21:21)
[2021-01-13 23:00] VITALS: BP 142/81
[2021-01-14] MEDS: INSULIN GLARGINE SYRINGE. SQ SCH (00:55)
[2021-01-14] MEDS: INSULIN LISPRO 300 UNITS/3 ML VIAL. SQ SCH ×3 (00:55→12:06)
[2021-01-14 03:51] VITALS: BP 118/78
[2021-01-14] MEDS: DEXAMETHASONE SOD PHOS 4 MG/ML VIAL IVP SCH (06:22)
[2021-01-14] MEDS ORDERED: ONDANSETRON PF 4 MG/2 ML VIAL. IVP PRN (06:45)
[2021-01-14 07:00] VITALS: BP 121/73
[2021-01-14] MEDS: ZINC SULFATE 220 MG CAPSULE. PO SCH (09:26)
[2021-01-14] MEDS: metFORMIN 500 MG TABLET PO SCH (09:26)
[2021-01-14] MEDS: ENOXAPARIN 40 MG/0.4 ML SYRINGE. SQ SCH (09:27)
[2021-01-14] MEDS: LACTOBACILLUS RHAMNOSUS GG 1 CAPSULE. PO SCH (09:27)
[2021-01-14] MEDS: ASCORBIC ACID 500 MG TABLET PO SCH (09:27)
[2021-01-14] MEDS: BENZONATATE 100 MG CAPSULE. PO SCH (09:27)
[2021-01-14] MEDS: VITAMIN B12,B9,B6 COMPLEX 1 TABLET. PO SCH (09:27)
[2021-01-14] MEDS: AZITHROMYCIN 250 MG TABLET. PO SCH (09:27)
[2021-01-14] MEDS: CHOLECALCIFEROL (VITAMIN D3) 5,000 UNIT CAPSULE PO SCH (09:27)
[2021-01-14] MEDS ORDERED: AZIT250T6 PO (10:55)
[2021-01-14] MEDS ORDERED: DEXA4TAB63 PO (10:55)
--- NOTE | 2021-01-14 10:59 | PDOC ---
[employer] [facility] PROGRESS NOTE Date of Service DOS: DATE: 01/14/21 TIME: 10:58 Chief Complaint Chief Complaint A/P: Acute hypoxic respiratory failure COVID -19 positive from 01/02, with cough and dysgeusia and weakness and malaise, and shortness of breath Obese, BMI 36 Dm2, on metformin and glyburide, hyperglycemia, will give Lantus and SSI hydrate, full covid protocol azithro, steroids, lovenox BID, vitamins and Remdesivir, History of Present Illness History of Present Illness Mr. Barber is a 45 year old male, admit with marked worse shortness of breath with exertion over 24 hours. Noted to be Covid19+ on January 02, 2021, he worked 01/01, tested pos after exposure from his . They had used a home pulse oximeter and dropped to 83% on 01/10/21. He has intermittent chest pains with cough and dyspnea. Patient states he is a type II diabetic and takes Metformin 1000 mg twice daily, glimepiride 2 mg nightly. 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 Admitted for further care. 01/11: Overnight required increased to 8 L minute oxygen. He still has a little bit of an appetite but is loss of sense of taste. Glucose in the 200s. Has some diarrhea now 01/12: Afebrile. Continues on 8 L nasal cannula O2. Appetite is improving ate more. Still with diarrhea. He is feeling a little bit stronger. Remdesivir day two 01/13: Afebrile, down to 5 L nasal cannula O2. 800% of his meals. Diarrhea improved. Feeling stronger able to ambulate in the room. Remdesivir day 3 currently. Afebrile. 6-minute walk showing no O2 desaturations below 88%. Final dose of remdesivir today. 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 Vitals/I&O Vitals/I&O: Vital Signs Date Time Temp Pulse Resp B/P (MAP) Pulse Ox O2 Delivery O2 Flow Rate FiO2 01/14/21 07:00 96.8 51 18 121/73 (89) 97 Nasal Cannula 5.0 96.8 I & O 01/13/21 01/13/21 01/14/21 14:59 22:59 06:59 Intake Total 240 ml 980 ml Balance 240 ml 980 ml Physical Exam General: Alert, Oriented X3, Cooperative, mild distress, moderate distress Extremities: No cyanosis, Normal pulses Skin: No rashes Labs Labs: Laboratory Tests Test 01/13/21 11:55 01/13/21 16:07 01/13/21 20:15 01/14/21 08:15 Glucose (Fingerstick) 220 mg/dL (70-99) 220 mg/dL (70-99) 222 mg/dL (70-99) 167 mg/dL (70-99) Assessment and Plan Assessmemt and Plan Problems Medical Problems: (1) COVID-19 virus infection Status: Acute (2) Hypoxia Status: Acute (3) Uncontrolled diabetes mellitus Status: Acute Comment Review of Relevant I have reviewed the following items leeann (where applicable) has been applied. Medications: Current Medications Medications (Trade) Dose Ordered Sig/Nathan Route PRN Reason Start Time Stop Time Status Last Admin Dose Admin Ondansetron HCl (Zofran) 4 mg PRN Q8HRS PRN IVP NAUSEA/VOMITING 01/14/21 06:45 01/14/21 07:04 Justifications for Admission Other Justification JAMI CHRISTOPHER MD Jan 14, 2021 10:59
[2021-01-14 11:00] VITALS: BP_SYST 128; BP_SYST 145; BP_DIAS 59; BP_DIAS 93
--- NOTE | 2021-01-14 11:00 | PDOC3 ---
Discharge Summary Visit Information Date of Admission: Jan 10, 2021 Date of Discharge: Jan 14, 2021 Admitting Diagnosis: COVID 19, hypoxic respiratory failure Final Diagnosis Problems Medical Problems: (1) COVID-19 virus infection Status: Acute (2) Hypoxia Status: Acute (3) Uncontrolled diabetes mellitus Status: Acute Brief Hospital Course Allergies Allergies Coded Allergies Type Severity Reaction Last Updated Verified codeine Allergy Mild nausea 01/10/21 Yes Vital Signs Vital Signs Date Time Temp Pulse Resp B/P (MAP) Pulse Ox O2 Delivery O2 Flow Rate FiO2 01/14/21 07:00 96.8 51 18 121/73 (89) 97 Nasal Cannula 5.0 96.8 Lab Results Laboratory Tests Test 01/12/21 16:47 01/12/21 19:32 01/13/21 07:31 01/13/21 07:35 Glucose (Fingerstick) 216 mg/dL (70-99) 227 mg/dL (70-99) 123 mg/dL (70-99) White Blood Count 8.5 x10^3/uL (4.0-11.0) Red Blood Count 4.36 x10^6/uL (4.30-5.70) Hemoglobin 12.9 g/dL (13.0-17.5) Hematocrit 37.6 % (39.0-53.0) Mean Corpuscular Volume 86 fL (79-100) Mean Corpuscular Hemoglobin 30 pg (25-35) Mean Corpuscular Hemoglobin Concent 34 g/dL (31-37) Red Cell Distribution Width 13.0 % (11.5-14.5) Platelet Count 350 x10^3/uL (140-400) Neutrophils (%) (Auto) 63 % (31-73) Lymphocytes (%) (Auto) 27 % (24-48) Monocytes (%) (Auto) 10 % (0-9) Eosinophils (%) (Auto) 0 % (0-3) Basophils (%) (Auto) 0 % (0-3) Neutrophils # (Auto) 5.3 x10^3/uL (1.8-7.7) Lymphocytes # (Auto) 2.3 x10^3/uL (1.0-4.8) Monocytes # (Auto) 0.8 x10^3/uL (0.0-1.1) Eosinophils # (Auto) 0.0 x10^3/uL (0.0-0.7) Basophils # (Auto) 0.0 x10^3/uL (0.0-0.2) Sodium Level 141 mmol/L (136-145) Potassium Level 3.5 mmol/L (3.5-5.1) Chloride Level 105 mmol/L (98-107) Carbon Dioxide Level 28 mmol/L (21-32) Anion Gap 8 (6-14) Blood Urea Nitrogen 28 mg/dL (8-26) Creatinine 0.9 mg/dL (0.7-1.3) Estimated GFR (Cockcroft-Gault) 91.3 BUN/Creatinine Ratio 31 (6-20) Glucose Level 120 mg/dL (70-99) Calcium Level 8.6 mg/dL (8.5-10.1) Total Bilirubin 0.4 mg/dL (0.2-1.0) Aspartate Amino Transf (AST/SGOT) 19 U/L (15-37) Alanine Aminotransferase (ALT/SGPT) 44 U/L (16-63) Alkaline Phosphatase 32 U/L (46-116) Total Protein 5.9 g/dL (6.4-8.2) Albumin 2.4 g/dL (3.4-5.0) Albumin/Globulin Ratio 0.7 (1.0-1.7) Test 01/13/21 11:55 01/13/21 16:07 01/13/21 20:15 01/14/21 08:15 Glucose (Fingerstick) 220 mg/dL (70-99) 220 mg/dL (70-99) 222 mg/dL (70-99) 167 mg/dL (70-99) Laboratory Tests Test 01/13/21 11:55 01/13/21 16:07 01/13/21 20:15 01/14/21 08:15 Glucose (Fingerstick) 220 mg/dL (70-99) 220 mg/dL (70-99) 222 mg/dL (70-99) 167 mg/dL (70-99) Brief Hospital Course Mr. Barber is a 45 year old male, admit with marked worse shortness of breath with exertion over 24 hours. Noted to be Covid19+ on January 02, 2021, he worked 01/01, tested pos after exposure from his . They had used a home pulse oximeter and dropped to 83% on 01/10/21. He has intermittent chest pains with cough and dyspnea. Patient states he is a type II diabetic and takes Metformin 1000 mg twice daily, glimepiride 2 mg nightly. 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 Admitted for further care. 01/11: Overnight required increased to 8 L minute oxygen. He still has a little bit of an appetite but is loss of sense of taste. Glucose in the 200s. Has some diarrhea now 01/12: Afebrile. Continues on 8 L nasal cannula O2. Appetite is improving ate more. Still with diarrhea. He is feeling a little bit stronger. Remdesivir day two 01/13: Afebrile, down to 5 L nasal cannula O2. 800% of his meals. Diarrhea improved. Feeling stronger able to ambulate in the room. Remdesivir day 3 currently. Afebrile. 6-minute walk showing no O2 desaturations below 88%. Final dose of remdesivir today. 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 Problem list: Acute hypoxic respiratory failure COVID -19 positive from 01/02, with cough and dysgeusia and weakness and malaise, and shortness of breath Obese, BMI 36 Dm2, on metformin and glyburide, hyperglycemia, will give Lantus and SSI full covid protocol azithro, steroids, lovenox BID, vitamins and Remdesivir, Greater than 30 minutes spent on d/c home with self care Discharge Information Condition at Discharge: Improved Follow Up: Weeks (1) Disposition/Orders: D/C to Home Scheduled Amlodipine Besylate (Amlodipine Besylate) 5 Mg Tablet, 5 MG PO DAILY for , (Reported) Entered as Reported by: MIESHA MELVIN RN on 01/11/2111 Last Action: New Order on 01/11/2111 by MIESHA MELVIN RN Atorvastatin Calcium (Atorvastatin Calcium) 40 Mg Tablet, 40 MG PO DAILY for FOR CHOLESTEROL, #30 Ref 0 (Reported) Entered as Reported by: MIESHA MELVIN RN on 01/11/2111 Last Action: New Order on 01/11/2111 by MIESHA MELVIN RN Gabapentin (Gabapentin ) 300 Mg Capsule, 300 MG PO BID for NEUROGENIC PAIN, (Reported) Entered as Reported by: MIESHA MELVIN RN on 01/11/2111 Last Action: New Order on 01/11/2111 by MIESHA MELVIN RN Glimepiride (Glimepiride) 4 Mg Tablet, 4 MG PO DAILY08 for , (Reported) Entered as Reported by: MIESHA MELVIN RN on 01/11/2111 Last Action: New Order on 01/11/2111 by MIESHA MELVIN RN Glimepiride (Glimepiride) 2 Mg Tablet, 2 MG PO QHS for , (Reported) Entered as Reported by: MIESHA MELVIN RN on 01/11/2111 Last Action: New Order on 01/11/2111 by MIESHA MELVIN RN Hydrochlorothiazide (Hydrochlorothiazide Tablet ) 25 Mg Tablet, 25 MG PO DAILY for DIURETIC, Ref 0 (Reported) Entered as Reported by: MIESHA MELVIN RN on 01/11/2111 Last Action: New Order on 01/11/2111 by MIESHA MELVIN RN Lisinopril (Lisinopril) 40 Mg Tablet, 40 MG PO DAILY for FOR HYPERTENSION, #30 Ref 0 (Reported) Entered as Reported by: MIESHA MELVIN RN on 01/11/2111 Last Action: New Order on 01/11/2111 by MIESHA MELVIN RN Metformin Hcl (Metformin Hcl) 1,000 Mg Tablet, 1,000 MG PO BIDWMEALS for , (Reported) Entered as Reported by: MIESHA MELVIN RN on 01/11/2111 Last Action: New Order on 01/11/2111 by MIESHA MELVIN RN Prednisone (Prednisone) 1 Mg Tablet, Unknown Dose PO DAILY for , (Reported) Entered as Reported by: MIESHA MELVIN RN on 01/11/2111 Last Taken: UNKNOWN on Unknown Date & Time Last Action: New Order on 01/11/2111 by MIESHA MELVIN RN Rosuvastatin Calcium (Crestor) 5 Mg Tablet, 10 MG PO HS for FOR CHOLESTEROL, #30 Ref 0 (Reported) Entered as Reported by: MIESHA MELVIN RN on 01/11/2111 Last Action: New Order on 01/11/2111 by MIESHA MELVIN RN Justicifation of Admission Dx: Justifications for Admission: Justification of Admission Dx: Yes Comminuty Aquired Pneumonia: Hypoxemia JAMI CHRISTOPHER MD Jan 14, 2021 11:00
[2021-01-14] MEDS: REMDESIVIR 100mg in NORMAL SALINE 250ML X 4 DAYS IV SCH (12:02)
== END 2021-01-14 13:55 | disposition home or self-care (01) | DRG 177 ==
LOC: ER 17:36 → 6 SOUTH 20:40
PROVIDERS: ADMIT Internal Medicine; ATTEND Internal Medicine
PROC: XW033E5 Introduction of Remdesivir Anti-infective into Peripheral Vein, Percutaneous Approach, New Technology Group 5 (ICD-10-PCS; principal; 2021-01-10)
DX: U07.1 COVID-19 (principal); J96.01 Acute respiratory failure with hypoxia; E11.65 Type 2 diabetes mellitus with hyperglycemia; E66.9 Obesity, unspecified; Z68.36 Body mass index [BMI] 36.0-36.9, adult; Z79.84 Long term (current) use of oral hypoglycemic drugs; Z88.8 Allergy status to other drugs, medicaments and biological substances
CPT/HCPCS: 36415; 36600; 71045; 80053; 82010; 82805; 82962; 83735; 84484; 85007; 85025; 85379; 87040; 93005; 94618; 99285; J0456; J1100; J1650; J1815; J2405; J7030; J7050; J7512; G0378